=== PATIENT | female | born 1960 | race African-American/Black ===

== ENCOUNTER 2021-09-15 15:42 | Inpatient (IN) | payer BC ==
[2021-09-15 16:12] VITALS: BMI 28.8
[2021-09-15] MEDS ORDERED: LOPERAMIDE HCL 2 MG CAPSULE PO PRN (17:12)
[2021-09-15] MEDS ORDERED: DICYCLOMINE HCL 10 MG CAPSULE PO PRN (17:12)
[2021-09-15] MEDS ORDERED: BENZOCAINE/MENTHOL (CHLORASEPTIC ) LOZENGE MM PRN (17:12)
[2021-09-15] MEDS ORDERED: BISMUTH SUBSALICYLATE 524 MG/30 ML PO PRN (17:12)
[2021-09-15] MEDS ORDERED: IBUPROFEN 600 MG TABLET (FP) PO PRN (17:12)
[2021-09-15] MEDS ORDERED: P-EPHED 60MG/TRIPROLIDI 2.5MG TABLET PO PRN (17:12)
[2021-09-15] MEDS ORDERED: ACETAMINOPHEN 325 MG TABLET (FP) PO PRN ×2 (17:12)
[2021-09-15] MEDS ORDERED: MELATONIN 5 MG TABLETS PO PRN (17:12)
[2021-09-15] MEDS ORDERED: ONDANSETRON *ODT* 4 MG TABLET SL PRN (17:12)
[2021-09-15] MEDS ORDERED: NICOTINE 10 MG CARTRIDGE (INHALER) IH PRN (17:12)
[2021-09-15] MEDS ORDERED: MAG HYDROX/AL HYDROX/SIMETH 30 ML UNIT-DOSE CUP PO PRN (17:12)
[2021-09-15] MEDS ORDERED: IBUPROFEN 400 MG TABLET (FP) PO PRN (17:12)
[2021-09-15] MEDS ORDERED: MAGNESIUM HYDROX 2400MG/30ML ORAL SUSPENSION 30 ML CUP PO PRN (17:12)
[2021-09-15] MEDS ORDERED: MAGNESIUM CITRATE 300 ML BOTTLE PO PRN (17:12)
[2021-09-16] MEDS: THIAMINE HCL 100 MG TABLET (FP) PO SCH ×2 (02:00→22:46)
[2021-09-16] MEDS ORDERED: cloNIDine HCL 0.1 MG TABLET PO PRN (10:28)
[2021-09-16] MEDS ORDERED: methaDONE HCL 10 MG TABLET (FOR DETOX USE ONLY) PO ONE (10:28)
[2021-09-16] MEDS: PRENATAL VITAMINS W/ FOLIC ACID TABLET (FP) PO SCH (10:42)
[2021-09-16] MEDS ORDERED: amLODIPine BESYLATE 5 MG TABLET (FP) PO SCH (10:45)
[2021-09-16 11:44] LABS: HEMATOCRIT 35.3 % (32.4-45.2); HEMOGLOBIN 11.5 GM/dL (10.7-15.3); MCH 27.4 pg (25.7-33.7); MCHC 32.6 g/dl (32.0-36.0); MEAN PLT VOLUME 7.3 fl (7.5-11.1); PLATELET COUNT 307 10^3/uL (134-434); RBC 4.21 M/mm3 (3.60-5.2); WHITE BLOOD COUNT 4.3 K/mm3 (4.0-10.0)
[2021-09-16 12:00] LABS: ALBUMIN 3.1 g/dl (3.4-5.0); BLOOD UREA NITROGEN 9.3 mg/dL (7-18)
[2021-09-16 12:03] LABS: CREATININE 0.9 mg/dL (0.55-1.3)
[2021-09-16 12:05] LABS: BILIRUBIN,TOTAL 0.3 mg/dL (0.2-1); TOT PROT 6.9 g/dl (6.4-8.2)
[2021-09-16] MEDS: FLUTICASONE PROP 0.05% 16 GM NASAL SPRAY NS SCH (13:39)
[2021-09-16] MEDS ORDERED: LISINOPRIL 5 MG TABLET PO ONE (16:15)
[2021-09-16] MEDS: METHOCARBAMOL 500 MG TABLET PO PRN (18:03)
[2021-09-16] MEDS: hydrOXYzine PAMOATE 25 MG CAPSULE (FP) PO PRN (18:03)
[2021-09-17] MEDS ORDERED: methaDONE HCL 10 MG TABLET (FOR DETOX USE ONLY) ONE (09:31)
[2021-09-17] MEDS: FLUTICASONE PROP 0.05% 16 GM NASAL SPRAY NS SCH (10:27)
[2021-09-17] MEDS: METHOCARBAMOL 500 MG TABLET PO PRN (10:27)
[2021-09-17] MEDS: hydrOXYzine PAMOATE 25 MG CAPSULE (FP) PO PRN (10:27)
[2021-09-17] MEDS: amLODIPine BESYLATE 10 MG TABLET (FP) PO SCH (10:28)
[2021-09-17] MEDS: PRENATAL VITAMINS W/ FOLIC ACID TABLET (FP) PO SCH (10:29)
[2021-09-17] MEDS: THIAMINE HCL 100 MG TABLET (FP) PO SCH (23:58)
[2021-09-18] MEDS ORDERED: methaDONE HCL 10 MG TABLET (FOR DETOX USE ONLY) PO ONE (10:00)
[2021-09-18] MEDS: PRENATAL VITAMINS W/ FOLIC ACID TABLET (FP) PO SCH (11:10)
[2021-09-18] MEDS: hydrOXYzine PAMOATE 25 MG CAPSULE (FP) PO PRN (11:10)
[2021-09-18] MEDS: amLODIPine BESYLATE 10 MG TABLET (FP) PO SCH (11:10)
[2021-09-18] MEDS: METHOCARBAMOL 500 MG TABLET PO PRN (11:10)
[2021-09-18] MEDS: FLUTICASONE PROP 0.05% 16 GM NASAL SPRAY NS SCH (11:11)
[2021-09-18] MEDS: THIAMINE HCL 100 MG TABLET (FP) PO SCH (23:36)
[2021-09-19] MEDS ORDERED: methaDONE HCL 10 MG TABLET (FOR DETOX USE ONLY) ONE (09:13)
[2021-09-19] MEDS: FLUTICASONE PROP 0.05% 16 GM NASAL SPRAY NS SCH (10:09)
[2021-09-19] MEDS: PRENATAL VITAMINS W/ FOLIC ACID TABLET (FP) PO SCH (10:10)
[2021-09-19] MEDS: amLODIPine BESYLATE 10 MG TABLET (FP) PO SCH (10:10)
[2021-09-19] MEDS: METHOCARBAMOL 500 MG TABLET PO PRN (10:10)
[2021-09-19] MEDS: hydrOXYzine PAMOATE 25 MG CAPSULE (FP) PO PRN (10:10)
[2021-09-19] MEDS ORDERED: LISINOPRIL 5 MG TABLET PO ONE (14:00)
[2021-09-20] MEDS: LISINOPRIL 5 MG TABLET PO SCH ×2 (00:30→10:08)
[2021-09-20] MEDS: THIAMINE HCL 100 MG TABLET (FP) PO SCH (00:31)
[2021-09-20 09:22] VITALS: BP 96/60; PULSE 83; TEMP 97.7
[2021-09-20] MEDS ORDERED: methaDONE HCL 10 MG TABLET (FOR DETOX USE ONLY) PO ONE (10:00)
[2021-09-20] MEDS: FLUTICASONE PROP 0.05% 16 GM NASAL SPRAY NS SCH (10:07)
[2021-09-20] MEDS: hydrOXYzine PAMOATE 25 MG CAPSULE (FP) PO PRN (10:08)
[2021-09-20] MEDS: amLODIPine BESYLATE 10 MG TABLET (FP) PO SCH (10:08)
[2021-09-20] MEDS: PRENATAL VITAMINS W/ FOLIC ACID TABLET (FP) PO SCH (10:08)
[2021-09-20] MEDS: METHOCARBAMOL 500 MG TABLET PO PRN (10:10)
== END 2021-09-20 11:30 | disposition home or self-care (01) | DRG 773 ==
LOC: YASAS 15:42 → Y6N 20:02
PROVIDERS: ADMIT Allergy & Immunology; ATTEND Surgery
PROC: HZ2ZZZZ Detoxification Services for Substance Abuse Treatment (ICD-10-PCS; principal; 2021-09-15)
DX: F11.23 Opioid dependence with withdrawal (principal); F14.20 Cocaine dependence, uncomplicated; F41.9 Anxiety disorder, unspecified; I10 Essential (primary) hypertension; M17.0 Bilateral primary osteoarthritis of knee; M19.041 Primary osteoarthritis, right hand; M19.042 Primary osteoarthritis, left hand
CPT/HCPCS: 36415; 80053; 85027; 86780; 87811; C9803-CS; Q0162; U0003; U0005